=== PATIENT | female | born 2000 | race Caucasian/White ===

== ENCOUNTER 2025-08-13 14:06 | Emergency (ER) | payer MEDICAID, SELFPAY ==
[2025-08-13 14:27] VITALS: BP 128/82; PULSE 75; RESP 16; TEMP 37.1; O2SAT 99; BMI 43.6
--- NOTE | 2025-08-13 14:47 | XR_ITS ---
EXAMINATION: Lumbar spine 3 views TECHNIQUE: AP lateral, lateral lower lumbar spine 3 views Date and time: August 13, 2025, 1506 hours INDICATIONS: Low back pain with leg numbness beginning 2 days ago. FINDINGS: Adequate alignment lumbar vertebral bodies No lumbar fracture Moderate to advanced degenerative disc disease L5-S1 IMPRESSION: Moderate to advanced degenerative disc disease L5-S1
--- NOTE | 2025-08-13 14:48 | PD.EDRME ---
Rapid Medical Screening Exam RME Arrival date/time: 08/13/25 14:06 Chief Complaint: General Adult/Misc Complain Time Seen by Provider: 08/13/25 14:33 Vital signs: Vital Signs Temperature 98.7 F 08/13/25 14:27 Pulse Rate 75 08/13/25 14:27 Respiratory Rate 16 08/13/25 14:27 Blood Pressure 128/82 08/13/25 14:27 Pulse Oximetry (%) 99 08/13/25 14:27 Oxygen Delivery Method Room Air 08/13/25 14:27 RME Narrative: 24-year-old female with history of sciatica during pregnancies here for low back pain and left leg tingling. Although no loss of bowel or bladder control states she worries because was told once if she ever starts having tingling that is not normal for her back pain. 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 Did recently start a job at [employer] where she stands more and is not used to that all the standing thinks it is making her left leg feel different from her right. Did have gestational diabetes and never got retested after her pregnancies. Now she is worried they might be from diabetes as well. No fever Exam: ttp lumbar and left sciatic knotch, no foot drop, negative left straight leg raise Clinical Impression: sciatica vs. peripheral neuropathy from dm
--- NOTE | 2025-08-13 14:52 | PD.EDADULT ---
ED General RME/HPI General Chief complaint: General Adult/Misc Complain Stated complaint: L LEG NUMBNESS/STABBING PAIN Time Seen by Provider: 08/13/25 14:33 Arrival date/time: 08/13/25 14:06 Limitations: no limitations RME / HPI RME / HPI narrative: 24-year-old female with history of sciatica during pregnancies here for low back pain and left leg tingling. Although no loss of bowel or bladder control states she worries because was told once if she ever starts having tingling that is not normal for her back pain. 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 Did recently start a job at [employer] where she stands more and is not used to that all the standing thinks it is making her left leg feel different from her right. Did have gestational diabetes and never got retested after her pregnancies. Now she is worried they might be from diabetes as well. No fever Exam: ttp lumbar and left sciatic knotch, no foot drop, negative left straight leg raise Impression: sciatica vs. peripheral neuropathy from dm Related Data Home Medications ?Medication ?Instructions ?Recorded ?Confirmed fluoxetine 20 mg capsule (Prozac) 20 mg PO QDAY 12/25/19 01/16/20 Previous Rx's ?Medication ?Instructions ?Recorded acetaminophen 300 mg-codeine 15 mg 1 tab PO Q12H PRN pain #14 tabs 04/03/24 tablet enoxaparin 40 mg/0.4 mL 40 mg (0.4 mL) subcut QDAY #20 mL 04/03/24 subcutaneous syringe (Lovenox) ibuprofen 800 mg tablet 800 mg PO Q8H PRN pain #60 tabs 04/03/24 baclofen 10 mg tablet 10 mg PO BID #20 tabs 08/13/25 Allergies Allergy/AdvReac Type Severity Reaction Status Date / Time No Known Allergies Allergy Verified 01/16/20 08:15 Review of Systems Review of Systems Systems Reviewed: All systems reviewed, normal except as documented Constitutional Constitutional: Denies fever(s) Musculoskeletal Musculoskeletal: Reports as per HPI Neurologic Neurologic: Reports as per HPI and Reports paresthesias ED Exam General Limitations: Present no limitations General appearance: Present alert and in no apparent distress Eye Eye exam: Present normal appearance, PERRL and EOMI Respiratory Respiratory exam: Present normal lung sounds bilaterally Cardiovascular Cardiovascular exam: Present regular rate, normal rhythm and normal heart sounds Abdominal Exam Abdominal exam: Present soft and normal bowel sounds Extremities Exam Extremities exam: Present normal inspection and full ROM Back Exam Back exam: Present normal inspection, full ROM and sciatic notch tenderness (L); Absent straight leg raise (L) Psychiatric Psychiatric exam: Present normal affect and normal mood Skin Skin exam: Present warm, dry, intact and normal color Course Quality Measures none Orders Category Date Time Status XR lumbar spine 2-3V Stat Exams 08/13/25 14:47 Completed CBC Stat Lab 08/13/25 14:52 Completed CMP [Comprehensive Metabolic Panel] Stat Lab 08/13/25 14:52 Completed Ketone [Beta Hydroxybutyrate] Stat Lab 08/13/25 14:52 Completed UA [Urinalysis] Stat Lab 08/13/25 13:22 Completed Dexamethasone Inj [Decadron Inj] Med 08/13/25 14:43 Discontinued 10 mg PO X1 ONE HYDROcodone*/APAP 5/325 [Mullens 5/325] Med 08/13/25 14:43 Discontinued 1 tab PO X1 ONE Ketorolac Inj [Toradol Inj] Med 08/13/25 14:43 Discontinued 30 mg IM X1 ONE Vital Signs Vital signs: Vital Signs Temperature 98.7 F 08/13/25 14:27 Pulse Rate 75 08/13/25 14:27 Respiratory Rate 16 08/13/25 14:27 Blood Pressure 128/82 08/13/25 14:27 Pulse Oximetry (%) 99 08/13/25 14:27 Oxygen Delivery Method Room Air 08/13/25 14:27 Discharge Plan Plan Patient Disposition: HOME (Self Care) Discharge Disposition comment: f/u in 2-3days Prescriptions/Referrals Prescriptions/Med Rec: New baclofen 10 mg tablet 10 mg PO BID Qty: 20 0RF No Action fluoxetine [Prozac] 20 mg Capsule 20 mg PO QDAY acetaminophen-codeine 300-15 mg tablet 1 tab PO Q12H PRN (Reason: pain) Qty: 14 0RF ibuprofen 800 mg tablet 800 mg PO Q8H PRN (Reason: pain) Qty: 60 0RF enoxaparin [Lovenox] 40 mg/0.4 mL syringe 40 mg subcut QDAY Qty: 20 0RF Referrals: Dylon Melchor MD [Primary Care Provider, Family Practice] - In 1 week Problem List Clinical Impression: Degenerative joint disease (DJD) of lumbar spine, Sciatica of left side, History of gestational diabetes mellitus Patient/Caregiver Discharge Instructions Education Materials: ED Sciatica, Osteoarthritis Print Language: Italian Stand Alone Forms: Marissa Award Info., Work/School Release, Patient Portal Info Letter PA/DIGITAL MEASUREMENT ADVISOR Supervising Physician PA/DIGITAL MEASUREMENT ADVISOR Supervising Physician: Dr. Mei MDM Narrative MDM hospital course (for use when minimal MDM required): Patient improved after minimal interventions here. Discussed findings today patient is no longer diabetic per workup today noted. However did have significant findings on lumbar x-ray. Explained such. Advise follow-up with PCP return to ER symptoms worsen Clinical Information Provided by: patient and family Medical Records reviewed [facility] Meds/Rx considered, not ordered describe: Narcotics for home were considered however opted against Labs/Rad/Tests considered, not ordered Describe: CT or MRI of lumbar was considered however unlikely to change the course of treatment today Chronic Illness/Social Conditions Explain: History of diabetes which may cause some of the complications she is describing Labs Lab(s) Interpretation(s): CBC CMP UA all within normal limits negative ketones Imaging Imaging interpretation: interpreted by me Imaging Interpretation(s): Lumbar x-ray shows DJD of lumbar Medication Administration(s) Medication Administration History Discontinued Medications Hydrocodone Bitart/Acetaminophen (Hydrocodone/Apap 5/325 Tablet) 1 tab PO X1 ONE Stop: 08/13/25 14:44 Last Admin: 08/13/25 15:02 Dose: 1 tab Documented By: BD Dexamethasone Sodium Phosphate (Dexamethasone Sod Phos Inj 10 Mg/Ml Vial) 10 mg PO X1 ONE Stop: 08/13/25 14:44 Last Admin: 08/13/25 15:01 Dose: 10 mg Documented By: BD Comments: given po Ketorolac Tromethamine (Ketorolac Inj 30 Mg/Ml Vial) 30 mg IM X1 ONE Stop: 08/13/25 14:44 Last Admin: 08/13/25 15:02 Dose: 30 mg Documented By: BD See above Diagnosis Differential Diagnosis ED Complaint MDM: Sciatica, spinal abscess, DJD Diagnoses ruled out and/or further discussions: Sciatica DJD of lumbar History of gestational diabetes
[2025-08-13] MEDS: DEXAMETHASONE SOD PHOS INJ 10 MG/ML VIAL PO (15:01)
[2025-08-13 15:02] LABS: Basophils # (Auto) 0.1 Thou/mm3 (0.0-0.2); Basophils % (Auto) 1 % (0-2.5); Eosinophils # (Auto) 0.4 Thou/mm3 (0.0-0.5); Eosinophils % (Auto) 4 % (0-10); Hematocrit 41.1 % (36.0-46.0); Hemoglobin 13.6 g/dL (12.0-16.0); Immature Granulocytes Auto 0.02 Thou/mm3 (0.00-0.00); Lymphocytes # (Auto) 2.8 Thou/mm3 (1.0-4.8); Lymphocytes % (Auto) 33 % (10-50); Mean Corpuscular HGB Conc 33.1 g/dl (31.0-37.0); Mean Corpuscular Hemoglobin 30.3 pg (25.0-35.0); Mean Corpuscular Volume 92 fL (80-100); Monocytes # (Auto) 0.4 Thou/mm3 (0.0-0.8); Monocytes % (Auto) 5 % (0-12); Neutrophils # (Auto) 4.9 Thou/mm3 (1.8-7.7); Neutrophils % (Auto) 57 % (37-80); Nucleated Red Blood Cell # 0.00 Thou/mm3 (0.00-0.00); Nucleated Red Blood Cell % 0 /100 WBC (0); Platelet Count 236 Thou/mm3 (140-440); RDW Standard Deviation 44.6 fL (36.4-46.3); Red Blood Count 4.49 Miln/mm3 (4.00-5.20); White Blood Count 8.6 Thou/mm3 (3.6-11.0)
[2025-08-13] MEDS: KETOROLAC INJ 30 MG/ML VIAL IM (15:02)
[2025-08-13] MEDS: HYDROcodone/APAP 5/325 TABLET 1 TAB PO (15:02)
[2025-08-13 15:09] LABS: Beta Hydroxybutyrate 0.2 mmol/L (<0.6)
[2025-08-13 15:26] LABS: Alanine Aminotransferase 20 U/L (10-49); Albumin, Serum 4.5 gm/dL (3.5-5.0); Albumin/Globulin Ratio 1.6 (1.2-2.2); Alkaline Phosphatase 58 U/L (46-116); Anion Gap 7 (7-16); Aspartate Amino Transferase 18 U/L (0-34); BUN/Creatinine Ratio 9 Ratio (12-20); Bilirubin,Total 0.4 mg/dL (0.3-1.2); Blood Urea Nitrogen 7 mg/dL (9-23); Calcium 8.8 mg/dL (8.3-10.6); Calcium (Corrected) 8.8 mg/dL (8.5-10.1); Carbon Dioxide 26.3 mMol/L (20.0-31.0); Chloride 107 mMol/L (98-107); Creatinine (Component) 0.8 mg/dL (0.6-1.3); Estimated Creatinine Clearance 168.5 mL/min (>60); Globulin 2.8 gm/dL (2.3-3.5); Glucose 95 mg/dL (74-106); Osmolality,Calculated 277 (275-295); Potassium 3.8 mMol/L (3.4-5.1); Sodium 140 mMol/L (136-145); Total Protein 7.3 gm/dL (5.7-8.2); eGFR > 60 See Note
[2025-08-13 15:28] LABS: Collection Type, Urine Clean Catch
[2025-08-13 15:41] LABS: Bacteria,Urine Rare; Bilirubin,Urine Negative (Negative); Blood,Urine 3+ (Negative); Clarity,Urine Turbid (Clear/Hazy); Color,Urine Yellow (Lt Yel-Yel); Glucose, Urine Negative (Negative); Ketones,Urine Trace (Negative); Leukocyte Esterase,Urine Negative (Negative); Nitrite,Urine Negative (Negative); PH,Urine 6.0 (5.0-7.0); Protein,Urine 1+ (Neg - Trace); RBC,Urine 11 /hpf (0-3); Specific Gravity,Urine 1.031 (1.001-1.035); Squamous Epithelial Cell,Urine 21 /hpf (0-5); Transitional Epi Cells,Urine 1 /hpf (0-5); Urobilinogen,Urine Negative mg/dL (0.0-1.0); WBC,Urine 7 /hpf (0-5)
[2025-08-13 17:03] VITALS: BP 126/80; PULSE 80; RESP 16; TEMP 37; O2SAT 99
== END 2025-08-13 17:05 | disposition home or self-care (01) ==
PROVIDERS: Physician Assistant; Emergency Provider Emergency Medicine; PCP Family Medicine
DX: M47.816 Spondylosis without myelopathy or radiculopathy, lumbar region (principal); M54.42 Lumbago with sciatica, left side
CPT/HCPCS: 36415; 72100; 80053; 81001; 82010; 85025; 96372; 99283; J1100; J1885; A9270

== ENCOUNTER 2025-08-29 11:12 | Emergency (ER) | payer MEDICAID, SELFPAY ==
[2025-08-29 11:18] VITALS: BP 135/85; PULSE 82; RESP 20; TEMP 37.1; O2SAT 96; BMI 43.0
--- NOTE | 2025-08-29 11:32 | XR_ITS ---
Examination: Complete OB ultrasound, less than 14 weeks, transabdominal Date and time of exam: August 29, 2025, 1212 hours INDICATIONS: Vaginal bleeding today Technique: Obstetrical ultrasound images less than 14 weeks performed via transabdominal imaging Findings: Uterus 7.6 cm pole 0.3 cm corresponds to 6 weeks 0 days gestational age, no cardiac motion Right ovary 4.1 cm arterial flow 20 mm cyst Left ovary 3.7 cm arterial flow 27 mm cyst IMPRESSION: Intrauterine gestation corresponding to 6 weeks 0 days gestational age, no pole Recommend transvaginal pelvic sonography follow-up to confirm viability.
--- NOTE | 2025-08-29 11:34 | EDNOTE_ITS ---
<Statement entered by Amina Swann MD - 08/30/25 17:42> As co-signing physician, I was present and available for consult prn. I concur with the plan and care as documented by the midlevel provider. ED General RME/HPI General Chief complaint: Vaginal Bleeding Stated complaint: VAGINAL BLEEDING, PREG 6WKS Time Seen by Provider: 08/29/25 11:18 Arrival date/time: 08/29/25 11:12 CC: Vaginal bleeding HPI patient is a G3, P1 at estimated 6 weeks who states she has had brownish spotting for the past week and wiped with bright red blood today. Patient denies low back pain or abdominal cramping. Denies nausea vomiting fever chills shortness of breath or difficulty breathing did not have an OB for this yet. Patient is not in any acute distress. Related Data Home Medications ?Medication ?Instructions ?Recorded ?Confirmed fluoxetine 20 mg capsule (Prozac) 20 mg PO QDAY 01/16/20 Previous Rx's ?Medication ?Instructions ?Recorded acetaminophen 300 mg-codeine 15 mg 1 tab PO Q12H PRN p ain #14 tabs 04/03/24 tablet enoxaparin 40 mg/0.4 mL 40 mg (0.4 mL) subcut QDAY # 20 mL 04/03/24 subcutaneous syringe (Lovenox) ibuprofen 800 mg tablet 800 mg PO Q8H PRN pain #60 t abs 04/03/24 baclofen 10 mg tablet 10 mg PO BID #20 tabs Allergies Allergy/AdvReac Type Severity Reaction Status Date / Time No Known Allergies Allergy Verified 08/29/25 11:14 Review of Systems Review of Systems Narrative Review of Systems: GEN: No fever, no chills, no weight loss EYES: No discharge, no visual changes, no pain HEENT: No ear pain, no congestion, no sore throat PULM: No shortness of breath, no cough, no congestion CV: No chest pain, no dyspnea on exertion, no palpitations GI: No nausea, no vomiting, no diarrhea, no pain, no constipation : No frequency, no urgency, no dysuria MUSC/SKEL: No joint pain, no back pain SKIN: No rash PSYCH: No hallucinations, no depression HEME/LYMPH: No easy bleeding or bruising tendencies NEURO: No weakness, no headache Past Medical History Past Medical History NEUROLOGIC: Negative Neurological Disorders or Seizures CARDIAC: Negative Cardiac Disorders or Congestive Heart Failure RESPIRATORY: Negative Chronic Obstructive Pulmonary Disease (COPD) GASTROINTESTINAL: Negative Gastrointestinal Disorders, Hepatitis or Colorectal Cancer GENITOURINARY: Negative Genitourinary Disorders or Renal Disease REPRODUCTIVE: Negative Breast Cancer or Previous Pregnancies MUSCULOSKELETAL: Negative Musculoskeletal Disorders or Bone Cancer ENDOCRINE: Positive Endocrine Disorders; Negative Diabetes Mellitus Type 1 or Diabetes Mellitus Type 2 HEMATOLOGIC: Negative Blood Disorders PSYCHO/SOCIAL: Positive Depression OTHER HISTORY: Positive MRSA (stomach, legs, buttocks at 14 years old); Negative Hospitalization, Autoimmune Disease, Down Syndrome, Developmental Delay, Shingles, Falls, Blood Transfusions, Blood Transfusion Reaction, Anesthesia Reactions, VRSA, Vancomycin-Resistant Enterococci, Human Immunodeficiency Virus (HIV), Chicken Pox, Measles, Mumps, Rubella ([place] Measles), Pertussis, Clostridium Difficile, Cancer, Breast Cancer, Cervical Cancer, Colorectal Cancer, Lung Cancer or Ovarian Cancer Family History FAMILY HISTORY: Positive Family Psychiatric Problems (father- bipolar, pgf- mental disorder), Family Respiratory Disorders (brother- asthma), Family Cardiac Disorders (MGF heart disease, mother- htn) and Family Cancer (mgf- leukemia, pgm- uterine cancer); Negative Family Gastrointestinal Problems, Family Surgery or Family Anesthesia Reaction Surgical History SURGICAL: Positive Tonsillectomy (16 years old); Negative Section Social History SMOKING STATUS: Current every day smoker SECOND HAND EXPOSURE: Yes ED Exam Narrative Physical exam: [General: Obese not in any acute distress Head normocephalic HEENT: Within acceptable limits Neck is supple nontender Chest equal chest rise nontender to palpation Respiratory: Clear to auscultation no wheezes crackles or rubs CV: Rate rhythm is regular no murmurs rubs or clicks Abdomen is distended secondary to body habitus soft nontender no masses positive bowel sounds all 4 quadrants Back: No CVA tenderness no spinous process tenderness from cervical spine thoracic and lumbar spine Skin: Intact no petechiae rash induration ulceration or crepitus Extremities: Moving all extremity against resistance cap refill less than 2 seconds neurosensory intact Neuro: Awake alert oriented x3 Glascow coma 15 no focal deficits] Course Quality Measures none Orders Category Date Time Status US OB <= 14 weeks fetus Stat Exams 08/29/25 11:32 Completed ABO/RH Type Stat Lab 08/29/25 11:51 Completed Beta HCG,Quantitative Stat Lab 08/29/25 11:51 Completed CBC Stat Lab 08/29/25 11:51 Completed Urinalysis Stat Lab 08/29/25 12:00 Completed Vital Signs Vital signs: Vital Signs Temperature 98.8 F 08/29/25 11:18 Pulse Rate 82 08/29/25 11:18 Respiratory Rate 20 08/29/25 11:18 Blood Pressure 135/85 H 08/29/25 11:18 Pulse Oximetry (%) 96 08/29/25 11:18 Oxygen Delivery Method Room Air 08/29/25 11:18 Discharge Plan Plan Patient Disposition: HOME (Self Care) Patient condition on transfer: Stable Prescriptions/Referrals Prescriptions/Med Rec: No Action fluoxetine [Prozac] 20 mg Capsule 20 mg PO QDAY acetaminophen-codeine 300-15 mg tablet 1 tab PO Q12H PRN (Reason: pain) Qty: 14 0RF ibuprofen 800 mg tablet 800 mg PO Q8H PRN (Reason: pain) Qty: 60 0RF enoxaparin [Lovenox] 40 mg/0.4 mL syringe 40 mg subcut QDAY Qty: 20 0RF baclofen 10 mg tablet 10 mg PO BID Qty: 20 0RF Referrals: Thomas Fermin MD [Primary Care Provider, Family Practice] - In 1 week Problem List Clinical Impression: Threatened miscarriage, Vaginal bleeding Patient/Caregiver Discharge Instructions Other Activity Instructions:: Ultrasound shows a gestational sac estimated at 6 weeks 0 days but no heart tones. Your quantitative hCG at 19 44. Please return in 1 week for repeat ultrasound. I suspect this is a threatened miscarriage but you will need a repeat ultrasound to confirm. If there are any significant vaginal bleeding lower abdominal cramping or pain or passing of clots return to the emergency room for reexamination. Education Materials: ED Possible Miscarriage ... Print Language: Ukrainian Stand Alone Forms: Marissa Award Info., Work/School Release, Patient Portal Info Letter KALPANA/SHIRLEY Supervising Physician KALPANA/SHIRLEY Supervising Physician: James Luong ENP [facility] Clinical Information Provided by: patient Medical Records reviewed [facility] Meds/Rx considered, not ordered None Labs/Rad/Tests considered, not ordered None Chronic Illness/Social Conditions which may negatively complicate care or outcome(s)-explain: None or not applica ble Explain: EKG EKG not done Labs Labs: interpreted by me Lab(s) Interpretation(s): CBC shows no acute leukocytosis anemia thrombocytopenia Urine is a contaminated catch ABO Rh a positive. Imaging Imaging interpretation: interpreted by me Imaging Interpretation(s): Ultrasound shows gestational sac at 6 weeks 0 days but no heart motion Medication Administration(s) none Diagnosis Differential Diagnosis ED Complaint MDM: Threatened miscarriage ectopic IUP with first trimester vaginal bleeding.
[2025-08-29 12:05] LABS: Basophils # (Auto) 0.0 Thou/mm3 (0.0-0.2); Basophils % (Auto) 1 % (0-2.5); Eosinophils # (Auto) 0.3 Thou/mm3 (0.0-0.5); Eosinophils % (Auto) 4 % (0-10); Hematocrit 41.3 % (36.0-46.0); Hemoglobin 13.6 g/dL (12.0-16.0); Immature Granulocytes Auto 0.02 Thou/mm3 (0.00-0.00); Lymphocytes # (Auto) 2.3 Thou/mm3 (1.0-4.8); Lymphocytes % (Auto) 29 % (10-50); Mean Corpuscular HGB Conc 32.9 g/dl (31.0-37.0); Mean Corpuscular Hemoglobin 30.6 pg (25.0-35.0); Mean Corpuscular Volume 93 fL (80-100); Monocytes # (Auto) 0.4 Thou/mm3 (0.0-0.8); Monocytes % (Auto) 6 % (0-12); Neutrophils # (Auto) 4.8 Thou/mm3 (1.8-7.7); Neutrophils % (Auto) 61 % (37-80); Nucleated Red Blood Cell # 0.00 Thou/mm3 (0.00-0.00); Nucleated Red Blood Cell % 0 /100 WBC (0); Platelet Count 230 Thou/mm3 (140-440); RDW Standard Deviation 45.2 fL (36.4-46.3); Red Blood Count 4.44 Miln/mm3 (4.00-5.20); White Blood Count 7.9 Thou/mm3 (3.6-11.0)
[2025-08-29 12:12] LABS: Collection Type, Urine Clean Catch
[2025-08-29 12:35] LABS: Bacteria,Urine 2+; Bilirubin,Urine Negative (Negative); Blood,Urine 3+ (Negative); Clarity,Urine Turbid (Clear/Hazy); Color,Urine Yellow (Lt Yel-Yel); Glucose, Urine Negative (Negative); Ketones,Urine Trace (Negative); Leukocyte Esterase,Urine Negative (Negative); Nitrite,Urine Negative (Negative); PH,Urine 5.5 (5.0-7.0); Protein,Urine Trace (Neg - Trace); RBC,Urine 9 /hpf (0-3); Specific Gravity,Urine 1.029 (1.001-1.035); Squamous Epithelial Cell,Urine 14 /hpf (0-5); Urobilinogen,Urine Negative mg/dL (0.0-1.0); WBC,Urine 8 /hpf (0-5)
[2025-08-29 12:46] LABS: Beta HCG,Quantitative 1944 mIU/mL (<5.0)
== END 2025-08-29 13:24 | disposition home or self-care (01) ==
PROVIDERS: Registered Nurse General Practice; Emergency Provider Emergency Medicine; PCP Family Medicine
DX: O20.0 Threatened abortion (principal); Z3A.01 Less than 8 weeks gestation of pregnancy
CPT/HCPCS: 36415; 76801; 81001; 84702; 85025; 86900; 86901; 99283

== ENCOUNTER 2025-08-30 18:04 | Emergency (ER) | payer MEDICAID, SELFPAY ==
[2025-08-30 18:05] VITALS: BP 122/89; PULSE 80; RESP 18; TEMP 36.9; O2SAT 97
[2025-08-30 18:33] VITALS: BMI 42.9
--- NOTE | 2025-08-30 18:36 | PD.EDVAGBL ---
ED OB Contraction Preg RMI/HPI General Chief complaint: OB/Uterine Contractions Stated complaint: PASSING SMALL BLOOD CLOTS, PREG 6WKS Time Seen by Provider: 08/30/25 18:21 Source: patient, RN notes reviewed and old records reviewed Arrival date/time: 08/30/25 18:04 Mode of arrival: ambulatory Limitations: no limitations RME / HPI RME / HPI Narrative: 24yof approx 6 weeks gestation presents to ED for vaginal spotting since yesterday. Patient reports passing small clots today. Reports mild pelvic cramping. 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 Related Data Home Medications ?Medication ?Instructions ?Recorded ?Confirmed fluoxetine 20 mg capsule (Prozac) 20 mg PO QDAY 12/25/19 01/16/20 Previous Rx's ?Medication ?Instructions ?Recorded acetaminophen 300 mg-codeine 15 mg 1 tab PO Q12H PRN pain #14 tabs 04/03/24 tablet enoxaparin 40 mg/0.4 mL 40 mg (0.4 mL) subcut QDAY #20 mL 04/03/24 subcutaneous syringe (Lovenox) ibuprofen 800 mg tablet 800 mg PO Q8H PRN pain #60 tabs 04/03/24 baclofen 10 mg tablet 10 mg PO BID #20 tabs 08/13/25 Allergies Allergy/AdvReac Type Severity Reaction Status Date / Time No Known Allergies Allergy Verified 08/30/25 18:06 Review of Systems Review of Systems Systems Reviewed: All systems reviewed, normal except as documented Constitutional Constitutional: Denies fever(s) Gastrointestinal Gastrointestinal: Denies nausea and Denies vomiting Genitourinary Genitourinary: Reports abnormal vaginal bleeding, Denies dysuria and Reports pelvic pain Past Medical History Past Medical History GASTROINTESTINAL: Positive Obesity Surgical History SURGICAL: Positive Tonsillectomy Social History SMOKING STATUS: Current every day smoker SUBSTANCE USE: marijuana ALCOHOL: Current (rarely) ED Exam General Limitations: Present no limitations General appearance: Present alert and in no apparent distress Head Head exam: Present atraumatic and normocephalic Eye Eye exam: Present normal appearance, PERRL and EOMI ENT ENT exam: Present normal exam and mucous membranes moist Neck Neck exam: Present normal inspection and full ROM Chest Chest inspection: Present normal inspection and symmetric chest wall rise Respiratory Respiratory exam: Present normal lung sounds bilaterally; Absent respiratory distress Cardiovascular Cardiovascular exam: Present regular rate and normal rhythm Abdominal Exam Abdominal exam: Present soft; Absent distention, tenderness, guarding or rebound Extremities Exam Extremities exam: Present normal inspection and full ROM Neurological Exam Neurological exam: Present alert and oriented X3 Psychiatric Psychiatric exam: Present normal affect and normal mood Skin Skin exam: Present warm, dry, intact and normal color Course Quality Measures none Orders Category Date Time Status US OB transvaginal Stat Exams 08/30/25 20:05 Completed Beta HCG,Quantitative Stat Lab 08/30/25 18:54 Completed CBC Stat Lab 08/30/25 18:54 Completed Vital Signs Vital signs: Vital Signs Temperature 98.5 F 08/30/25 18:05 Pulse Rate 80 08/30/25 18:05 Respiratory Rate 18 08/30/25 18:05 Blood Pressure 122/89 H 08/30/25 18:05 Pulse Oximetry (%) 97 08/30/25 18:05 Oxygen Delivery Method Room Air 08/30/25 18:05 Vaginal Bleeding MDM Narrative MDM Narrative: 24yof approx 6 weeks gestation presents to ED for vaginal spotting since yesterday. Patient reports passing small clots today. Reports mild pelvic cramping. 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 Patient updated on labs/imaging. Encouraged close ob follow up. Patient has appt scheduled for next week. Stable for dc, RTED precautions given. Patient data External records reviewed:: [facility] previous records (08/29/25 ED visit for threatened miscarriage) Clinical information provided by:: patient Social determinants that could affect healthcare access:: none Patient has the following chronic illnesses:: obesity How is presenting disease/condition affected by chronic disease/condition?: uneffected by Evaluation data The following diagnostics were reviewed and interpreted by me:: lab results and radiology exam(s) Lab and/or radiology exams considered but not ordered:: none Interpretation Summary: hcg 2179 increased from 1944 yesterday No anemia Ob ultrasound: intrauterine sac without pole/cardiac activity per my read Medications / Prescriptions Medications or Prescriptions considered but not ordered:: no antibiotics recommended at this time Medication administrations:: none Consultations Consultation(s) initiated? (list below): No Diagnosis Vaginal Bleeding Differential Diagnosis: missed , threatened , dysfunctional uterine bleeding, incomplete and ectopic without intrauterine Most likely diagnosis given after review of the tests above:: threatened miscarriage Admission Indicated Admission indicated?: not indicated Admission Request Was there a request for admission?: No Disposition Plan Disposition Plan: Discharge Discharge Attestation Discharge Attestation: The patient and all family members were given an opportunity to ask questions and understood the discharge instructions. Discharge instructions specifically effects, indications for sooner follow up or return to the emergency department, and the expected course of current diagnosis. Patient condition: Stable Discharge Plan Plan Patient Disposition: HOME (Self Care) Patient condition on transfer: Stable Prescriptions/Referrals Prescriptions/Med Rec: No Action fluoxetine [Prozac] 20 mg Capsule 20 mg PO QDAY acetaminophen-codeine 300-15 mg tablet 1 tab PO Q12H PRN (Reason: pain) Qty: 14 0RF ibuprofen 800 mg tablet 800 mg PO Q8H PRN (Reason: pain) Qty: 60 0RF enoxaparin [Lovenox] 40 mg/0.4 mL syringe 40 mg subcut QDAY Qty: 20 0RF baclofen 10 mg tablet 10 mg PO BID Qty: 20 0RF Referrals: No Primary/Family,Physician [Primary Care Provider] - In 1 week Problem List Clinical Impression: Threatened miscarriage, Vaginal bleeding Patient/Caregiver Discharge Instructions Education Materials: ED Possible Miscarriage ... Additional Instructions: Please follow up with your ob for hcg recheck. Your hcg ( hormone)level was 2179 today. Print Language: Bangladeshi Stand Alone Forms: Marissa Award Info., Patient Portal Info Letter PA/SHIRLEY Supervising Physician PA/SHIRLEY Supervising Physician: Marty
[2025-08-30 19:14] LABS: Basophils # (Auto) 0.1 Thou/mm3 (0.0-0.2); Basophils % (Auto) 1 % (0-2.5); Eosinophils # (Auto) 0.4 Thou/mm3 (0.0-0.5); Eosinophils % (Auto) 4 % (0-10); Hematocrit 40.0 % (36.0-46.0); Hemoglobin 13.3 g/dL (12.0-16.0); Immature Granulocytes Auto 0.02 Thou/mm3 (0.00-0.00); Lymphocytes # (Auto) 3.3 Thou/mm3 (1.0-4.8); Lymphocytes % (Auto) 34 % (10-50); Mean Corpuscular HGB Conc 33.3 g/dl (31.0-37.0); Mean Corpuscular Hemoglobin 30.6 pg (25.0-35.0); Mean Corpuscular Volume 92 fL (80-100); Monocytes # (Auto) 0.5 Thou/mm3 (0.0-0.8); Monocytes % (Auto) 5 % (0-12); Neutrophils # (Auto) 5.5 Thou/mm3 (1.8-7.7); Neutrophils % (Auto) 56 % (37-80); Nucleated Red Blood Cell # 0.00 Thou/mm3 (0.00-0.00); Nucleated Red Blood Cell % 0 /100 WBC (0); Platelet Count 233 Thou/mm3 (140-440); RDW Standard Deviation 44.9 fL (36.4-46.3); Red Blood Count 4.34 Miln/mm3 (4.00-5.20); White Blood Count 9.8 Thou/mm3 (3.6-11.0)
[2025-08-30 20:02] LABS: Beta HCG,Quantitative 2179 mIU/mL (<5.0)
--- NOTE | 2025-08-30 20:05 | XR_ITS ---
Examination: OB Transvaginal ultrasound of the pelvis, complete Technique: Transvaginal sonographic images pelvis performed using soliz scale imaging Exam date and time: August 30, 2025, 2030 hours INDICATIONS: Vaginal bleeding beginning 2 days ago, worse today, pelvic sonogram yesterday intrauterine gestational sac 6 weeks 0 days no pole. FINDINGS: Uterus 9.3 cm Intrauterine gestational sac 1.0 cm corresponds to 5 weeks 5 days gestational age No pole, no cardiac activity Ovaries obscured by bowel gas IMPRESSION: Empty intrauterine gestational sac corresponding to 5 weeks 5 days gestational age No pole, no cardiac activity Recommend continued short-term follow-up to document viability
[2025-08-30 21:31] VITALS: RESP 16
== END 2025-08-30 21:32 | disposition home or self-care (01) ==
PROVIDERS: Physician Assistant; Emergency Provider Emergency Medicine
DX: O20.0 Threatened abortion (principal); Z3A.01 Less than 8 weeks gestation of pregnancy
CPT/HCPCS: 36415; 76817; 84702; 85025; 99283